=== PATIENT | male | born 1945 | race Caucasian/White ===

== ENCOUNTER 2017-09-21 10:36 | Emergency (ER) | payer MEDICARE ==
[2017-09-21] MEDS ORDERED: IPRATROPIUM-ALBUTEROL 3 ML NEB INHALATION STA (11:48)
--- NOTE | 2017-09-21 11:52 | ED ---
General Adult HPI - General Chief complaint: Upper Respiratory Infection Stated complaint: Chest congestion sent by [facility] Time Seen by Provider: 09/21/17 11:36 Source: patient, family, RN notes reviewed Mode of arrival: ambulatory Limitations: no limitations - History of Present Illness Initial comments: Patient is a pleasant 72-year-old male presenting to the emergency department with cough. Symptoms have been present for 8 days. Patient does have dry cough. Patient has had some fevers. Patient does have some associated chest heaviness however patient does attribute this to his cough. Chest heaviness has been persistent for the past 8 days. Patient was able to play golf without difficulty yesterday. Patient does feel somewhat short of breath that increases with deep breath. [facility] an x-[facility] was done and patient advised to come to ER. Patient also did receive nebulization treatment and Solu-Medrol injection while there. - Related Data Home Medications Medication Instructions Recorded Confirmed Aspirin 81 mg PO DAILY 09/21/17 09/21/17 Atorvastatin [Lipitor] 20 mg PO DAILY 09/21/17 09/21/17 Baclofen [Lioresal] 5 mg PO BID 09/21/17 09/21/17 Cholecalciferol [Vitamin D3] 1,000 unit PO DAILY 09/21/17 09/21/17 Ibuprofen [Motrin] 400 mg PO Q8HR PRN 09/21/17 09/21/17 L.acidoph,Paracasei, B.lactis 1 cap PO DAILY 09/21/17 09/21/17 [Probiotic] Levothyroxine Sodium [Synthroid] 100 mcg PO BARAHONA 09/21/17 09/21/17 Levothyroxine Sodium [Synthroid] 200 mcg PO MOTUWETHFRSA 09/21/17 09/21/17 Tadalafil [Cialis] 5 mg PO DAILY 09/21/17 09/21/17 Ubidecarenone [Co Q-10] 20 mg PO DAILY 09/21/17 09/21/17 Previous Rx's Medication Instructions Recorded Albuterol Inhaler [Ventolin Hfa 2 puff INHALATION Q4HR PRN #1 09/21/17 Inhaler] inhaler Allergies Allergy/AdvReac Type Severity Reaction Status Date / Time No Known Allergies Allergy Verified 09/21/17 11:55 Review of Systems ROS Statement: Those systems with pertinent positive or pertinent negative responses have been documented in the HPI. ROS Other: All systems not noted in ROS Statement are negative. Constitutional: Denies: fever Eyes: Denies: eye pain ENT: Denies: ear pain Respiratory: Reports: cough, dyspnea Cardiovascular: Reports: chest pain Endocrine: Reports: fatigue Gastrointestinal: Denies: abdominal pain, nausea Genitourinary: Denies: dysuria Musculoskeletal: Denies: back pain Skin: Denies: rash Neurological: Denies: weakness Past Medical History Past Medical History: No Reported History, Thyroid Disorder History of Any Multi-Drug Resistant Organisms: None Reported Additional Past Surgical History / Comment(s): Basal cell carcinoma removal from right hand Past Psychological History: No Psychological Hx Reported Smoking Status: Never smoker Past Alcohol Use History: Occasional Past Drug Use History: None Reported General Exam Limitations: no limitations General appearance: alert, in no apparent distress Head exam: Present: atraumatic Eye exam: Present: normal appearance, PERRL ENT exam: Present: normal oropharynx Neck exam: Present: normal inspection Respiratory exam: Present: wheezes (Very mild expiratory wheeze). Absent: chest wall tenderness Cardiovascular Exam: Present: regular rate, normal rhythm Expanded Peripheral pulses: 2+: Radial (R), Radial (L), Posterior Tibialis (R), Posterior Tibialis (L) GI/Abdominal exam: Present: soft. Absent: tenderness Extremities exam: Present: normal inspection. Absent: pedal edema, calf tenderness Neurological exam: Present: alert Psychiatric exam: Present: normal affect, normal mood Skin exam: Present: normal color Course Vital Signs 09/21/17 09/21/17 09/21/17 10:54 12:22 12:32 Temperature 98.2 F Pulse Rate 74 78 78 Respiratory 18 18 14 Rate Blood Pressure 129/76 O2 Sat by Pulse 98 Oximetry EKG Findings - EKG Comments: EKG Findings:: Normal sinus rhythm 83. GA 154. QRS 96. QT 398. QTC 467. Left axis. Normal QRS. No acute ST change. Medical Decision Making - Medical Decision Making Case was discussed in detail with Dr. Ellington who will follow-up with this patient. He is comfortable with discharge. Patient reevaluated and resting comfortably in bed. Patient is comfortable with discharge home. Patient and updated on results and concern for probable bronchogenic carcinoma. They' re aware of need for follow-up this week and agreeable. They are aware that patient will need further evaluation and further treatment. - Lab Data Result diagrams: 09/21/17 12:25 09/21/17 12:25 Lab Results 09/21/17 09/21/17 09/21/17 Range/Units 12:25 12:25 12:25 WBC 9.8 (3.8-10.6) k/uL RBC 4.29 L (4.30-5.90) m/uL Hgb 12.8 L (13.0-17.5) gm/dL Hct 39.0 (39.0-53.0) % MCV 91.0 (80.0-100.0) fL MCH 29.8 (25.0-35.0) pg MCHC 32.8 (31.0-37.0) g/dL RDW 12.5 (11.5-15.5) % Plt Count 304 (150-450) k/uL Neutrophils % 89 % Lymphocytes % 5 % Monocytes % 3 % Eosinophils % 1 % Basophils % 0 % Neutrophils # 8.7 H (1.3-7.7) k/uL Lymphocytes # 0.5 L (1.0-4.8) k/uL Monocytes # 0.3 (0-1.0) k/uL Eosinophils # 0.1 (0-0.7) k/uL Basophils # 0.0 (0-0.2) k/uL PT (9.0-12.0) sec INR (<1.2) APTT (22.0-30.0) sec D-Dimer (<0.60) mg/L FEU Sodium 139 (137-145) mmol/L Potassium 4.3 (3.5-5.1) mmol/L Chloride 105 (98-107) mmol/L Carbon Dioxide 24 (22-30) mmol/L Anion Gap 10 mmol/L BUN 15 (9-20) mg/dL Creatinine 0.70 (0.66-1.25) mg/dL Est GFR (CKD-EPI)AfAm >90 (>60 ml/min/1.73 sqM) Est GFR (CKD-EPI)NonAf >90 (>60 ml/min/1.73 sqM) Glucose 119 H (74-99) mg/dL Plasma Lactic Acid Mateo (0.7-2.0) mmol/L Calcium 9.2 (8.4-10.2) mg/dL Total Bilirubin 1.2 (0.2-1.3) mg/dL AST 41 (17-59) U/L ALT 38 (21-72) U/L Alkaline Phosphatase 86 (38-126) U/L Total Creatine Kinase 74 (55-170) U/L CK-MB (CK-2) 1.2 (0.0-2.4) ng/mL CK-MB (CK-2) Rel Index 1.6 Troponin I <0.012 (0.000-0.034) ng/mL NT-Pro-B Natriuret Pep pg/mL Total Protein 7.4 (6.3-8.2) g/dL Albumin 3.9 (3.5-5.0) g/dL 09/21/17 09/21/17 09/21/17 Range/Units 12:25 12:25 12:25 WBC (3.8-10.6) k/uL RBC (4.30-5.90) m/uL Hgb (13.0-17.5) gm/dL Hct (39.0-53.0) % MCV (80.0-100.0) fL MCH (25.0-35.0) pg MCHC (31.0-37.0) g/dL RDW (11.5-15.5) % Plt Count (150-450) k/uL Neutrophils % % Lymphocytes % % Monocytes % % Eosinophils % % Basophils % % Neutrophils # (1.3-7.7) k/uL Lymphocytes # (1.0-4.8) k/uL Monocytes # (0-1.0) k/uL Eosinophils # (0-0.7) k/uL Basophils # (0-0.2) k/uL PT 10.3 (9.0-12.0) sec INR 1.1 (<1.2) APTT 24.4 (22.0-30.0) sec D-Dimer 1.65 H (<0.60) mg/L FEU Sodium (137-145) mmol/L Potassium (3.5-5.1) mmol/L Chloride (98-107) mmol/L Carbon Dioxide (22-30) mmol/L Anion Gap mmol/L BUN (9-20) mg/dL Creatinine (0.66-1.25) mg/dL Est GFR (CKD-EPI)AfAm (>60 ml/min/1.73 sqM) Est GFR (CKD-EPI)NonAf (>60 ml/min/1.73 sqM) Glucose (74-99) mg/dL Plasma Lactic Acid Mateo 1.6 (0.7-2.0) mmol/L Calcium (8.4-10.2) mg/dL Total Bilirubin (0.2-1.3) mg/dL AST (17-59) U/L ALT (21-72) U/L Alkaline Phosphatase (38-126) U/L Total Creatine Kinase (55-170) U/L CK-MB (CK-2) (0.0-2.4) ng/mL CK-MB (CK-2) Rel Index Troponin I (0.000-0.034) ng/mL NT-Pro-B Natriuret Pep 79 pg/mL Total Protein (6.3-8.2) g/dL Albumin (3.5-5.0) g/dL - Radiology Data Radiology results: image reviewed (This x-ray [facility] with large right hilar consolidation. Computed tomography scan of the chest concerning for bronchogenic carcinoma. No pulmonary embolism.) Disposition Clinical Impression: Lung mass Disposition: HOME SELF-CARE Condition: Stable Instructions: Dyspnea (ED) Additional Instructions: Please follow-up this week with Dr. Ellington. Return for difficulty breathing, fevers, chest pain or increased pain, worsening symptoms or any other concerns. Findings are concerning for tumor in the bronchus/lungs. You will need further evaluation and possible biopsy. You will need further treatment for this. Prescriptions: Albuterol Inhaler [Ventolin Hfa Inhaler] 2 puff INHALATION Q4HR PRN #1 inhaler PRN Reason: Dyspnea Is patient prescribed a controlled substance at d/c from ED?: No Referrals: Patel Ellington MD [Primary Care Provider] - 1-2 days Time of Disposition: 15:48
[2017-09-21 12:54] LABS: Basophils % (A) 0 %; Eosinophils # (A) 0.1 k/uL (0-0.7); Eosinophils % (A) 1 %; HGB 12.8 gm/dL (13.0-17.5); Lymphocytes # (A) 0.5 k/uL (1.0-4.8); Lymphocytes % (A) 5 %; MCH 29.8 pg (25.0-35.0); MCHC 32.8 g/dL (31.0-37.0); Mean Platelet Volume 7.8; Monocytes # (A) 0.3 k/uL (0-1.0); Monocytes % (A) 3 %; Neutrophils # (A) 8.7 k/uL (1.3-7.7); Neutrophils % (A) 89 %; Platelet Count 304 k/uL (150-450); RBC 4.29 m/uL (4.30-5.90); RDW 12.5 % (11.5-15.5); WBC 9.8 k/uL (3.8-10.6)
[2017-09-21 12:58] LABS: ALT 38 U/L (21-72); AST 41 U/L (17-59); Albumin 3.9 g/dL (3.5-5.0); Alkaline Phosphatase 86 U/L (38-126); Anion Gap 10 mmol/L; Blood Urea Nitrogen 15 mg/dL (9-20); Calcium 9.2 mg/dL (8.4-10.2); Carbon Dioxide 24 mmol/L (22-30); Chloride 105 mmol/L (98-107); Glucose 119 mg/dL (74-99); Potassium 4.3 mmol/L (3.5-5.1); Sodium 139 mmol/L (137-145); Total Bilirubin 1.2 mg/dL (0.2-1.3); Total Protein 7.4 g/dL (6.3-8.2)
[2017-09-21 13:05] LABS: INR 1.1 (<1.2); Partial Thromboplastin Time 24.4 sec (22.0-30.0); Prothrombin Time 10.3 sec (9.0-12.0)
[2017-09-21 13:09] LABS: Creatine Kinase 74 U/L (55-170)
[2017-09-21 13:22] LABS: Creatine Kinase MB 1.2 ng/mL (0.0-2.4); Troponin I <0.012 ng/mL (0.000-0.034)
[2017-09-21 13:33] LABS: D-Dimer 1.65 mg/L FEU (<0.60)
--- NOTE | 2017-09-21 15:15 | CT ---
EXAMINATION TYPE: CT angio chest DATE OF EXAM: 09/21/2017 COMPARISON: Chest x-ray from outside institution same date HISTORY: chest congestion, SOB, sent by urgent care for abnormal cxr CT DLP: 351.3 mGycm Automated exposure control for dose reduction was used. CONTRAST: CTA scan of the thorax is performed with IV Contrast, patient injected with 100 mL of Isovue 370, pul monary embolism protocol. MIP images are created and reviewed. 3D reconstructed images are created on an independent workstation and reviewed. FINDINGS: LUNGS: There is abnormal soft tissue mass in the right hilar region which encases the right mainstem bronchus and extends into the mediastinum causing mass effect on the posterior wall the superior vena cava, postobstructive changes or infiltration extend peripherally to the level of the pleura the rig ht lower lobe as well as the major fissure, there are air bronchograms and encasement of segmental pu lmonary arteries and segmental bronchi, mass effect and upper lobe pulmonary arteries. Abnormal soft tissue extends into the right upper lobe which is ill-defined and extends to the mediastinum Nodulari ty is present within the right middle lobe peripherally, scattered soft tissue nodules are present. T here is honeycombing present at the lung bases. Some scattered emphysematous change present in the ri ght upper lobe is noted. There is thickening of the interstitial lines especially on the right in the lower and upper lobes, right middle lobe. AORTA: No additional significant abnormality is seen. MEDIASTINUM: Extensive subcarinal, retrocaval pretracheal adenopathy as well as prevascular and super ior mediastinal adenopathy, subcarinal nodes displace the esophagus. OTHER: No evident filling defect to suggest pulmonary embolism.. There are coronary artery calcifications. No pleural or pericardial effusion evident. Adrenal glands are not enlarged. IMPRESSION: FINDINGS COMPATIBLE WITH BRONCHOGENIC CARCINOMA. NO EVIDENT PULMONARY EMBOLISM.
[2017-09-21 16:13] VITALS: BP 138/56; PULSE 75; RESP 20; TEMP 98
== END 2017-09-21 16:00 | disposition home or self-care (01) ==
LOC: EC 10:36
DX: R91.8 Other nonspecific abnormal finding of lung field (principal); R06.2 Wheezing; R05 Cough; R50.9 Fever, unspecified; R09.89 Other specified symptoms and signs involving the circulatory and respiratory systems; R06.02 Shortness of breath; E07.9 Disorder of thyroid, unspecified; Z79.82 Long term (current) use of aspirin; Z79.899 Other long term (current) drug therapy
CPT/HCPCS: 36415; 94640; 93005; 85379; 83880; 80053; 82550; 82553; 83605; 84484; 85025; 85610; 85730; 87040; 71275; 99284; Q9967